=== PATIENT | female | born 1980 | race Caucasian/White ===

== ENCOUNTER 2016-07-18 03:19 | Emergency (ER) | payer OTHER ==
[2016-07-18 05:04] LABS: HEMOGLOBIN 14.7 gm/dl (12.3-15.3); RED BLOOD COUNT 5.06 M/UL (4.00-5.10); WHITE BLOOD COUNT 13.4 K/UL (4.5-11.0)
[2016-07-18 05:21] LABS: BUN/CREATININE RATIO 27 (0-10)
== END 2016-07-18 09:30 | disposition home or self-care (01) ==
LOC: ER1 03:19
PROVIDERS: Student in an Organized Health Care Education/Training Program
DX: N83.202 Unspecified ovarian cyst, left side (principal); R16.1 Splenomegaly, not elsewhere classified; E11.9 Type 2 diabetes mellitus without complications; I10 Essential (primary) hypertension; F17.200 Nicotine dependence, unspecified, uncomplicated; Z88.0 Allergy status to penicillin; Z79.01 Long term (current) use of anticoagulants; Z79.84 Long term (current) use of oral hypoglycemic drugs; Z79.899 Other long term (current) drug therapy
CPT/HCPCS: 36415; 80053; 81001; 83690; 84703; 85025; 87086; 96374; 96375; 99284; J2270; J2405; J7050; Q9962

== ENCOUNTER → 2020-10-28 | Outpatient (CLI) | payer OTHER ==
[~2020-10-28] MED LIST: ASPIRIN 325MG325 MG PO; BASAGLAR K100 UNIT/1 SQ; HUMALOG MI100 UNIT/1 SQ; IBUPROFEN200 M1 PO; LEVOTHYROXINE50 MCG PO; NITROSTAT0.4 MG SL; NOVOLOG100 UNIT/1 SC; PROZAC 20 MG CA20 MG PO; TIROSINT50 MCG PO
[2020-10-28 08:58] LABS: HEMOGLOBIN 17.1 gm/dl (12.3-15.3); RED BLOOD COUNT 5.79 M/UL (4.00-5.10); WHITE BLOOD COUNT 8.3 K/UL (4.5-11.0)
[2020-10-28 09:57] LABS: BUN/CREATININE RATIO 30 (0-10)
== END ==
LOC: OPSV2 07:58
PROVIDERS: Obstetrics & Gynecology
DX: Z01.812 Encounter for preprocedural laboratory examination (principal); R10.2 Pelvic and perineal pain
CPT/HCPCS: 36415; 80053; 81001; 83036; 85025

== ENCOUNTER → 2020-10-29 | Outpatient (CLI) | payer OTHER | LOC: KOH-I 10:22 | DX: Z01.811 Encounter for preprocedural respiratory examination (principal) | CPT/HCPCS: 71046 ==

== ENCOUNTER 2021-01-20 16:06 | Emergency (ER) | payer OTHER ==
[~2021-01-20] VITALS: Ht 162.6 cm; Wt 71.2 kg
[2021-01-20 17:57] LABS: HEMOGLOBIN 15.5 gm/dl (12.3-15.3); RED BLOOD COUNT 5.16 M/UL (4.00-5.10); WHITE BLOOD COUNT 6.2 K/UL (4.5-11.0)
[2021-01-20 18:32] LABS: BUN/CREATININE RATIO 16 (0-10)
[2021-01-20] MEDS ORDERED: VENTOLIN HFA 66.7 GM INH (19:55)
[2021-01-20] MEDS ORDERED: DECADRON6 MG PO (19:55)
[2021-01-20] MEDS ORDERED: LODINE CAP 300300 MG PO (19:55)
== END 2021-01-20 21:40 | disposition home or self-care (01) ==
LOC: ER1 16:06
PROVIDERS: Physician Assistant
DX: Z23 Encounter for immunization (principal); U07.1 COVID-19; R07.9 Chest pain, unspecified; Z88.0 Allergy status to penicillin; Z79.4 Long term (current) use of insulin; F17.200 Nicotine dependence, unspecified, uncomplicated; E11.9 Type 2 diabetes mellitus without complications
CPT/HCPCS: 71045; 80053; 85025; 85379; 86140; 99285; M0243